=== PATIENT | female | born 1970 | race Two or more races ===

== ENCOUNTER 2019-11-27 05:34 | Inpatient (IN) | payer OTHER ==
[~2019-11-27] VITALS: Ht 167.6 cm; Wt 90.8 kg
[2019-11-27] VITALS (16 sets, daily range): BP systolic 66–155; BP diastolic 54–78
[~2019-11-27 05:34] MED LIST: ABILIFY10 MG ORAL; AMBIEN5 MG ORAL; CARDIZEM30 M1 PO; ZOLOFT100 MG ORAL
[2019-11-27 06:00] LABS: APPEARANCE,URINE CLEAR; BILIRUBIN, URINE NEGATIVE (NEGATIVE); GLUCOSE, URINE (UA) NEGATIVE (NEGATIVE); KETONES,URINE NEGATIVE (NEGATIVE); LEUKOCYTE ESTERASE ,URINE 1+ (NEGATIVE); NITRITE,URINE NEGATIVE (NEGATIVE); PH,URINE 5 (4.5-8.0); PROTEIN,URINE NEGATIVE (NEGATIVE); UROBILINOGEN,URINE NORMAL MG/DL (0.0-1.0)
[2019-11-27 06:09] LABS: COLOR,URINE YELLOW
[2019-11-27] MEDS ORDERED: CIPROFLOXACIN500 M2 ORAL (06:19)
[2019-11-27] MEDS ORDERED: oxyCODONE HCL/Acetaminophen 5/325mg ORAL PRN (06:30)
[2019-11-27] MEDS ORDERED: LR 1000ml 1,000 ML IVLG SCH (06:30)
[2019-11-27] MEDS ORDERED: fentaNYL 100 mcg/2 mL IV PRN (06:30)
[2019-11-27] MEDS ORDERED: Ketorolac 30mg Inj IV PRN ×2 (06:30)
[2019-11-27] MEDS ORDERED: HYDROcodone/Acetamin 5/325 tab ORAL PRN ×2 (06:30→07:30)
[2019-11-27] MEDS ORDERED: Midazolam 2mg/2ml Inj IVP PRN (06:30)
[2019-11-27] MEDS ORDERED: Labetalol 5mg/ml 20ml vial IV PRN (06:30)
[2019-11-27] MEDS ORDERED: Atropine Sulfate 0.4mg/ml inj IVP PRN (06:30)
[2019-11-27] MEDS ORDERED: HYDROcodone/Acetamin 7.5/325 tab ORAL PRN ×2 (06:30→07:30)
[2019-11-27] MEDS ORDERED: Metoclopramide 10mg/2ml Inj IVP PRN ×2 (06:30→07:30)
[2019-11-27] MEDS ORDERED: Meperidine 25mg/0.5ml Inj (FOR RIGORS ONLY) IV PRN (06:30)
[2019-11-27] MEDS ORDERED: DiphenhydrAMINE 50mg/ml Inj IVP PRN (06:30)
[2019-11-27] MEDS ORDERED: Hydromorphone 0.5mg/0.5ml inj IVP PRN (06:30)
[2019-11-27] MEDS ORDERED: LORazepam Inj 2mg/ml 1ml IV PRN (06:30)
[2019-11-27] MEDS ORDERED: Acetaminophen (Non formulary) 100 ML IV ONE (06:30)
--- NOTE | 2019-11-27 06:32 | Anethesia Preoperative Eval ---
Anesthesia Pre-op PMH/ROS General Date of Evaluation: Nov 27, 2019 Time of Evaluation: 07:01 Anesthesiologist: Maddy ASA Score: ASA 3 Mallampati Score Class I : Soft palate, uvula, fauces, pillars visible Class II: Soft palate, uvula, fauces visible Class III: Soft palate, base of uvula visible Class IV: Only hard plate visible Mallampati Classification: Class I Surgeon: Tree Diagnosis: Neck Pain Surgical Procedure: ADR C5-6, ACDF C6-7 Anesthesia History: none Family History: no anesthesia problems Allergies: Uncoded Allergies: nicotine patch (Allergy, Severe, SOB, 11/26/19) Medications: see eMAR Patient NPO?: Yes Past Medical History Cardiovascular: Reports: HTN Gastrointestinal/Genitourinary: Reports: GERD Neurologic/Psychiatric: Reports: CVA, depression/anxiety PSxH Narrative: TH, L Elbow L Knee Anesthesia Pre-op Phys. Exam Physician Exam Last Vital Signs Date Time Temp Pulse Resp B/P (MAP) Pulse Ox O2 Delivery O2 Flow Rate FiO2 11/27/19 06:05 Room Air 11/27/19 06:04 97.0 88 20 119/75 (90) 96 Constitutional: NAD Neurologic: CN 2-12 intact Cardiovascular: RRR Respiratory: CTA Gastrointestinal: S/NT/ND Airway Exam Mallampati Score: Class I MO: full ROM: limited Teeth: missing, intact Anesthesia Pre-op A/P Risk Assessment & Plan Assessment: ASA 3 Plan: GA, SED. GlideScope Status Change Before Surgery: No Pre-Antibiotics Dru Grams Ancef IV Given Within 1 Hr of Incision: Yes Time Given: 07:26 Caio Castañeda MD Nov 27, 2019 06:32
[2019-11-27] MEDS ORDERED: Rocuronium Bromide 50mg/5ml Inj IV ONE (06:40)
[2019-11-27] MEDS ORDERED: Vancomycin 1gm vial IVPB ONE (06:48)
[2019-11-27] MEDS ORDERED: Thrombin 5000 units TOPIC ONE (06:49)
[2019-11-27] MEDS ORDERED: Gelfoam Size TOPIC ONE (06:49)
[2019-11-27] MEDS ORDERED: Bacitracin 50000 Units Vial ONE (06:49)
[2019-11-27] MEDS ORDERED: Sodium Chloride 10ml vial INJ ONE (06:56)
[2019-11-27] MEDS ORDERED: Lidocaine 1% MPF 10mg/ml 5ml ONE (06:56)
[2019-11-27] MEDS ORDERED: fentaNYL 100 mcg/2 mL IV ONE ×2 (06:57→08:05)
[2019-11-27] MEDS ORDERED: propofoL 1,000mg/100ml IV ONE (07:00)
[2019-11-27] MEDS ORDERED: LR 1000ml ONE (07:00)
[2019-11-27] MEDS ORDERED: Sterile Water Irrig 1000ml IRRIG ONE (07:00)
[2019-11-27] MEDS ORDERED: NS Irrig 1000ml ONE (07:00)
[2019-11-27] MEDS ORDERED: ceFAZolin sod 2 GM in NS 55 ML IVPB ONE (07:00)
[2019-11-27] MEDS ORDERED: Lidocaine 1% Plain 30 ml INJ ONE (07:02)
--- NOTE | 2019-11-27 07:19 | Pre-Procedure Note/Attestation ---
Pre-Procedure Note/Attestation Complete Prior to Procedure Planned Procedure: not applicable Procedure Narrative: Cervical 56 artificial disc replacement and Cervical 67 anterior cervical di scectomy and fusion Indications for Procedure Pre-Operative Diagnosis: hnp C56,67 Attestation I attest that I discussed the nature of the procedure; its benefits; risks and complications; and alternatives (and the risks and benefits of such alternatives), prior to the procedure, with the patient (or the patient's legal sales account representative). I attest that, if there was a reasonable possibility of needing a blood transfusion, the patient (or the patient's legal sales account representative) was given the [facility] standardized written summary, pursuant to the Beau Chelly Blood Safety Act ([place] Health and Safety Code # 1645, as amended). I attest that I re-evaluated the patient just prior to the surgery and that there has been no change in the patient's H&P, except as documented below: Avni Leavitt MD Nov 27, 2019 07:19
--- NOTE | 2019-11-27 07:21 | Brief Operative Note ---
Immediate Post Operative Note Operative Note Chief Complaint: neck pain and radiculopathy Pre-op Diagnosis: hnp C56,67 Procedure: Cervical 56 artificial disc replacement and Cervical 67 anterior cervical discectomy and fusion Post-op Diagnosis: same as pre-op Findings: consistent w/pre-op dx studies Surgeon: Tree Wind [employer]urbine Controls Engineer: Angella Anesthesiologist: Maddy Anesthesia: general Specimen: none Complications: none Condition: stable Fluids: IVF Estimated Blood Loss: minimal Drains: none Implant(s) used?: Yes - prodisc c sz 5, nuvasive interlock c sz 6 screwsx3 12mm Avni Leavitt MD Nov 27, 2019 07:21
[2019-11-27] MEDS ORDERED: Morphine Sulfate 4mg/ml Inj (IV USE ONLY) IV PRN (07:30)
[2019-11-27] MEDS ORDERED: Chloraseptic Spray 20mL Bottle ORAL PRN (07:30)
[2019-11-27] MEDS ORDERED: Naloxone 0.4mg/ml Inj IVP PRN (07:30)
[2019-11-27] MEDS ORDERED: Milk of Magnesia 30ml Ud ORAL PRN (07:30)
[2019-11-27] MEDS ORDERED: Morphine Sulfate 2mg/ml Inj(IV/IM USE ONLY) IV PRN (07:30)
[2019-11-27] MEDS ORDERED: Glycopyrrolate 0.2mg/ml 1ml Vial ONE (08:46)
[2019-11-27] MEDS ORDERED: Neostigmine 1mg/ml 10ml Inj ONE (08:46)
--- NOTE | 2019-11-27 09:53 | Immediate Post-Op Evaluation ---
Immediate Post-Op Evalulation Immediate Post-Op Evalulation Procedure: ADR C5-6, ACDF C6-7 Date of Evaluation: Nov 27, 2019 Time of Evaluation: 10:04 IV Fluids: 600 LR Blood Products: 0 Estimated Blood Loss: 50 Urinary Output: 0 Blood Pressure Systolic: 142 Blood Pressure Diastolic: 72 Pulse Rate: 86 Respiratory Rate: 16 O2 Sat by Pulse Oximetry: 99 Temperature (Fahrenheit): 98 Pain Score (1-10): 2 Nausea: No Vomiting: No Complications 0 Patient Status: awake, reacts, patent, extubated, none Dru Grams Ancef IV Given Within 1 Hr of Incision: Yes Time Given: 07:26 Caio Castañeda MD Nov 27, 2019 09:53
[2019-11-27] MEDS ORDERED: Cocaine HCl 4% 4ml vial TOPIC ONE (10:29)
--- NOTE | 2019-11-27 10:37 | NUR ---
CASE MANAGEMENT: INITIAL REVIEW 49YR OLD FEMALE FROM HOME HERE FOR SCHEDULED SURGERY CC:NECK AND RADICULOPATHY PAIN SI:NECK AND RADICULOPATHY PAIN 97.0 88 20 119/75 96% ON RA IS:IN SURGERY NOW C5-6 ARTIFICIAL DISC REPLACEMENT AND C 6-7 DISCECTOMY AND FUSION \: 3E MED SURG UNIT DCP: HOME WHEN STABLE PLAN: NPO ADVANCE DIET TOLERATED CONT ENCOURAGE INCENTIVE SPIROMETER NEURO CHECKS PT EVAL AND THERAPY RECOMMENDATION DVT PROPHYLAXIS ENCOURAGE AMBULATION
--- NOTE | 2019-11-27 11:10 | NUR ---
NURSE NOTES: Patient received from recovery via bed to room 315-1 on O2 3LNC in stable condition. Patient sleeping, awakens to name, touch. Anterior neck, dermabond, CDI. Ice pack in place. RT called for IS. Provided clear liquids, post cervial diet ordered. Neuro checks done, skin warm, hand grasps/pedal pushes 2/5, wiggles, pulses palpable. Bilateral SCDs on. Oriented patient to room, medical equipment and call light, verbalized understanding. Belongings reviewed, all at bedside. Call light in reach, bed in lowest position, will continue to monitor.
[2019-11-27] MEDS: NS w/KCl 20mEq 1000ml 1,000 ML IV SCH ×2 (12:55→22:45)
[2019-11-27] MEDS: HYDROmorphone 1mg/ml Carpuject IVP PRN ×3 (13:10→23:53)
--- NOTE | 2019-11-27 15:22 | 48 Hour Post Anesthesia Eval ---
Post Anesthesia Evaluation Procedure: ADR C5-6, ACDF C6-7 Date of Evaluation: Nov 27, 2019 Time of Evaluation: 15:22 Blood Pressure Systolic: 123 0: 54 Pulse Rate: 70 Respiratory Rate: 14 Temperature (Fahrenheit): 97.5 O2 Sat by Pulse Oximetry: 98 Airway: patent Nausea: No Vomiting: No Pain Intensity: 0 Hydration Status: adequate Cardiopulmonary Status: stable Mental Status/LOC: patient returned to baseline Follow-up Care/Observations: na Post-Anesthesia Complications: none Follow-up care needed: N/A Laly Louie CRNA Nov 27, 2019 15:22
[2019-11-27] MEDS: ceFAZolin sod 1 GM in D5W 55 ML IVPB SCH ×2 (16:28→22:45)
--- NOTE | 2019-11-27 16:30 | NUR ---
NURSE NOTES: Daughter at bedside, reviewed all post op orders, medications, plans for PT evaluation in AM, possible discharge (discussed process for post op patients with discharge: needing to tolerate PO pain medication, tolerate diet, cleared by PT and MDs), also that there is a Rx, films and CD in chart for patient. Ice pack replaced x2 so far. Patient voided on bedpan without difficulty.
--- NOTE | 2019-11-27 16:55 | NUR ---
NURSE NOTES: Home medications reconciled with Dr. Benavides, orders received.
--- NOTE | 2019-11-27 16:59 | General Progress Note ---
Subjective Allergies: Uncoded Allergies: nicotine patch (Allergy, Severe, SOB, 11/26/19) Subjective asked to follow up postop Objective Last 24 Hour Vital Signs Date Time Temp Pulse Resp B/P (MAP) Pulse Ox O2 Delivery O2 Flow Rate FiO2 11/27/19 15:22 70 14 98 11/27/19 11:00 97.5 11/27/19 10:53 97.5 98 18 123/54 99 Nasal Cannula 3 11/27/19 10:40 101 15 134/59 99 Nasal Cannula 3 11/27/19 10:30 95 17 134/63 100 Nasal Cannula 3 11/27/19 10:20 85 16 142/66 100 Simple Mask 6 11/27/19 10:15 97 15 128/71 100 Simple Mask 6 11/27/19 10:05 94 17 153/68 100 Simple Mask 6 11/27/19 10:00 89 16 153/71 98 Simple Mask 6 11/27/19 09:55 87 13 155/78 98 Simple Mask 6 11/27/19 09:53 86 16 99 11/27/19 09:49 98.0 90 14 142/77 100 Simple Mask 6 11/27/19 06:05 Room Air 11/27/19 06:04 97.0 88 20 119/75 (90) 96 Intake and Output 11/26/19 11/27/19 19:00 07:00 # Voids 1 Laboratory Tests 11/27/19 05:45: Urine Color Yellow, Urine Appearance Clear, Urine pH 5, Urine Specific [place] 1.025, Urine Protein Negative, Urine Glucose (UA) Negative, Urine Ketones Neg ative, Urine Blood Negative, Urine Nitrite Negative, Urine Bilirubin Negative, Urine Urobilinogen Normal, Urine Leukocyte Esterase 1+H, Urine RBC 0, Urine WBC 2-4, Urine Squamous Epithelial Cells Few, Urine Bacteria Few, Urine Mucus FewH Height (Feet): 5 Height (Inches): 6.00 Weight (Pounds): 175 Objective WDWN NAD clear breath sounds bilaterally without rhonchi or wheeze [id number] without MRG NABS nontender no HSM no CCE nonfocal Assessment/Plan Assessment/Plan: hnp C56,67 cervical disc disease Cervical 56 artificial disc replacement and Cervical 67 anterior cervical discectomy and fusion PLAN 1. incentive spirometry 2. SCD 3. PT evaluation and therapy 4. Hydration 5. Pain management 6. discharge once stable with outpatient follow up 7. resume home meds Cayden Benavides MD Nov 27, 2019 16:59
--- NOTE | 2019-11-27 17:04 | Diagnostic Imaging Report ---
INDICATION: Pain, intraoperative TECHNIQUE: Intraoperative imaging Fluoroscopy time: 44.7 seconds Total dose: 0.32380 mGym2 Total number of images: 8.9 COMPARISON: None FINDINGS: Surgical markers overlie the C6 vertebral body. Subsequent images document placement of disc prosthesis at C5-6 and anterior fusion at C6-7. IMPRESSION: Intraoperative imaging, as described
--- NOTE | 2019-11-27 17:15 | NUR ---
NURSE NOTES: Home medications sent down to pharmacy at this time. Receipt #[id number].
[2019-11-27] MEDS: Docusate 100mg cap ORAL SCH (18:35)
--- NOTE | 2019-11-27 19:00 | Operative Note - Dictated ---
DATE OF OPERATION: 11/27/2019 SURGEON: Avni Leavitt MD, Orthopaedic Spine Surgeon. PRODUCTION CLOTH CUTTER: MONICA Rich. PREOPERATIVE DIAGNOSES: 1. Intractable neck pain. 2. Radiculopathy. 3. Herniation, C5-C6 and C6-C7. 4. Neural foraminal stenosis, C5-C6 and C6-C7. 5. Stenosis. POSTOPERATIVE DIAGNOSES: 1. Intractable neck pain. 2. Radiculopathy. 3. Herniation, C5-C6 and C6-C7. 4. Neural foraminal stenosis, C5-C6 and C6-C7. 5. Stenosis. PROCEDURE PERFORMED: 1. Anterior cervical discectomy and artificial disc replacement of C5-C6 using a Synthes ProDisc C size 5 height. 2. Anterior cervical discectomy and fusion of C6-C7 using NuVasive Interlock-C size 6 PEEK cage and three screws of 13 mm length and 1 mL of Osteocel allograft bone and local autograft. 3. Use of intraoperative microscope. 4. Motor-evoked potential monitoring. 5. Somatosensory-evoked potential monitoring. 6. Supervision and interpretation of fluoroscopy. COMPLICATIONS: None. ANESTHESIA: General. ESTIMATED BLOOD LOSS: Less than 100 mL. INDICATIONS FOR SURGERY: This patient is a 49-year-old female, who has a history of diagnoses as listed above. As a result of this, the patient sustained intractable neck pain, radiculopathy, herniation at C5-C6 and C6-C7, neural foraminal stenosis at C5-C6 and C6-C7, and stenosis. We tried a course of conservative management, but despite this course, there was still a significant component of persistent, recalcitrant neck pain and arm pain. The MRI demonstrated significant neural foraminal compromise secondary to disc herniations at C5-C6 and C6-C7. We had a long discussion with Chelo regarding the risks and benefits of surgery. Our discussion included but was not limited to nonoperative management, chiropractic management, another epidural steroid injection as well as definitive management in the form of surgery. We recommended an anterior cervical discectomy and artificial disc replacement of cervical C5-C6 and anterior cervical discectomy and fusion of cervical C6-C7 as final definitive management. We reviewed the risks and benefits of surgery with the patient. Our discussion included a comprehensive review of the clinical issues and the nature of the clinical decision. We reviewed the alternatives, including doing nothing. The patient elected to proceed accordingly with an anterior cervical discectomy and artificial disc replacement of cervical C5-C6 and anterior cervical discectomy and fusion of cervical C6-C7. We had a long discussion regarding the risks, alternatives, and benefits of surgery. Our description of the risks included a discussion in person as well as a signed consent, which detailed all pertinent risks from the procedure itself. Briefly, our discussion included but was not limited to infection, bleeding, pseudarthrosis, spinal cord injury, neurovascular injury, dural tear, CSF leak, neuropathy, paralysis, permanent weakness/drop foot/drop arm, paresthesias, blindness, palsy, and weakness. The patient understood there may be a need for a revision surgery or additional procedures. Approach-related complications including dysphonia, dysphagia, blindness, permanent vocal cord and neural injury, hematoma, swallowing and breathing difficulty. Medical complications were reviewed including liver, kidney, shock, cardiopulmonary failure, anesthesia complications including , swelling, damage to the musculature, larynx/voice injury or loss, esophagus/throat, trachea, blood vessels and muscles/muscular sprain and lungs/pneumothorax during this surgical procedure; injury to deeper structures may be temporary or permanent. After this review of risks, the patient understood these and elected to proceed. A written and verbal consent was given. We discussed the pros and cons of all the alternatives. We discussed the uncertainties associated with the decision. Afterwards, I assessed the patient's understanding and explored her preferences. All questions were answered and no guarantees were given. Medical clearance was obtained prior to surgery. INTRAOPERATIVE FINDINGS: C5-C6; there was a distinct disc herniation noted at the left side of the posterior longitudinal ligament. This was carefully resected with a combination of Microsect 1-B and a Kerrison 1 and Kerrison 2 cervical Kerrisons until complete and thorough discectomy was performed at C5-C6. C6-C7; there was a tear noted in the posterior longitudinal ligament along the left side. The disc itself was soft and spongy, not desiccated or dehydrated or crumbled. Through the tear in the posterior longitudinal ligament on the left side, we noted a nuclear fragment of nucleus pulposus, which was torn through the PLL and encroaching on the neural foramina on the left side. The disc there was carefully resected with a Kerrison 1 and a Kerrison 2, after being completely and thoroughly mobilized with a Microsect 1-B curette. As noted, at both levels, she had soft disc with appropriate height and these were not collapsed, they were not indn-xr-ejta, and they were not desiccated, dried, or crumbled. DESCRIPTION OF PROCEDURE: Under the benefit of general endotracheal anesthesia and with the assistance of the entire operative team, the patient was moved from the gurney onto the operative table in the supine position. The head was secured and carefully positioned appropriately. Bilateral arms were secured with Gel Pads and foam and all bony prominences were padded. For the bilateral lower extremities, SCD and SHAHRIAR hose were placed for DVT prophylaxis. A surgical timeout was called, which corroborated our planned procedure of anterior cervical discectomy and artificial disc replacement of cervical C5-C6 and anterior cervical discectomy and fusion of cervical C6-C7. Preoperative antibiotics were administered within 30 minutes of the incision for antibiotic prophylaxis. Using lateral fluoroscopic radiography, the operative levels were delineated. Next, the wound was prepped and draped with chlorhexidine and sterile drapes. An incision was based on lateral fluoroscopy and we centered our incision at the C5-C6 and C6-C7 interspace and next, using a standard Burciaga-Pedraza anterior-based approach, the incision was taken down through the skin and subcutaneous tissues until the vertebral bodies and their corresponding disc spaces were visualized. A needle was placed into the interspace to confirm placement of the operative interspace and we performed the remainder of procedure under microscopic visualization. Next, using a bipolar and Bovie cautery to ensure meticulous hemostasis, the longus colli was mobilized bilaterally and retractors were placed deep to the longus colli bilaterally to address retraction. Next, we turned our attention to the radical anterior discectomy. This was initially performed at C5-C6 first by using a 15 blade scalpel followed by narrow pituitaries and a Microsect 5-B curette was used to denude the endplate of all cartilaginous tissue. Next, using a [employer] AM8 drill bit, the vertebral endplates were denuded of all residual cartilage in a xrda-no-omrp and layer by layer fashion, and ultimately the posterior uncinate joints bilaterally and posterior osteophytic lips and margins were carefully denuded until clear visualization of the posterior longitudinal ligament was possible. An endplate preparation was performed in the exact same fashion using an intervertebral kids club attendant, sequential distraction was obtained throughout the disc space. We saw a tear/rent in the PLL and this was carefully mobilized and dissected using a Microsect 1-B curet until we visualized a discrete disc herniation with compression of the spinal cord as well as neural foramina left (which was right more than left sided. Or I may say ?? which was left more than right sided). This neural foraminal compression was carefully resected using a Kerrison-1 and Kerrison-2 rongeurs until complete decompression of the spinal cord was visualized and complete decompression of the neural foramina and nerve root therein as well as the axilla and lateral margin of the nerve root was visualized and subsequently completely decompressed. The family was notified at one hour intervals throughout the procedure to provide for consistent updates. We next turned our attention towards trialing our implant within the disc space. We initially tried size 5 and this ProDisc Cervical spacer fit well in regards to depth and width. This implant was opened and prepared. Next under direct visualization I confirmed excellent fit in respect to the anterior and posterior vertebral bodies, the uncinate joints and in regards to toggle. Once satisfied with this placement on serial AP and lateral fluoroscopy I turned my attention towards cutting our jad. These were cut in the bones using a reciprocating drill and afterwards all free fragments of bone were irrigated. Next FloSeal was placed into the interspace, then removed in its entirety and the implant was inserted using fluoroscopic guidance. Next the Synthes ProDisc C size 5 ADR was then carefully advanced and secured into the intervertebral space under direct visualization and with supervision of AP and lateral fluoroscopic views. I next turned my attention towards the radical anterior discectomy. This was then performed at Cervical C6-C7. First by using a 15 blade scalpel followed by narrow pituitaries and a micro-sect 5-B curette was used to denude the endplate of all cartilaginous tissue. Next using a [employer] AM8 drill bit, the vertebral endplates were denuded of all cartilaginous tissue in a bjwi-zo-ddwg and tfeqo-kd-hozdf fashion, and ultimately the posterior uncinate joints bilaterally and posterior osteophytic lips and margins were carefully denuded until wide and thorough visualization of the posterior longitudinal ligament was possible. At this level, the endplate preparation was performed in the exact same fashion using an intervertebral kids club attendant, sequential distraction was obtained throughout the disc space. We saw a tear/rent in the PLL and this was carefully mobilized and dissected using a Microsect 1-B curette until we visualized an obvious disc herniation with compression of the spinal cord as well as neural foramina, which was left-sided. This neural foraminal compression was carefully resected using a Kerrison-1 and Kerrison-2 rongeurs until complete decompression of the spinal cord was visualized and complete decompression of the neural foramina and nerve root therein as well as the axilla and lateral margin of the nerve root was visualized and subsequently completely decompressed. We next turned our attention towards trialing our implant within the disc space. We initially tried size 5 and afterwards size 6 trial from the NuVasive Interlock system at C6-C7 level, which appeared to be appropriate under AP and lateral fluoroscopy as well as in terms of its height, depth, width, and lack of toggle. The PEEK (polyetheretherketone) interbody cages were then both packed with allograft bone from Osteocel and local autograft bone matrix. Next, these were then carefully advanced and secured into their intervertebral spaces under direct visualization and with supervision of AP and lateral fluoroscopic views. We next turned our attention towards plating. Plating was performed at C6-C7 level with the NuVasive Interlock-C plating system. A total of three screws, size 13 mm in length, were inserted and confirmed under AP and lateral fluoroscopy and confirmed to be in excellent position. After a finger sweep, we confirmed removal of all sponges. The retractor was removed and we next turned our attention to meticulous hemostasis with FloSeal and bipolar cautery. After the sponge and needle count was again found to be correct with our second count, we next turned our attention to closure. The wound was again copiously irrigated with antibiotic-impregnated saline. Closure consisted of 4-0 clear nylon for the platysma, and 5-0 clear nylon for the superficial skin. Final skin closure and dressings consisted of Dermabond. Prior to final closure, a final radiograph was obtained, which demonstrated the hardware was intact with excellent position throughout. The patient tolerated the procedure well. The patient was carefully extubated after the conclusion of surgery. We discussed the findings of the surgery with the family upon completion of the case. At this point, the patient was transferred to the spine floor for further observation. Avni Leavitt M.D. DR: YAZAN JOB#: [id number] CC:
--- NOTE | 2019-11-27 19:47 | NUR ---
NURSE HAND-OFF: Important Events on Shift:Post op patient received at 1110, Rx/Films/CD in chart Patient Status: stable Diet: post cervical diet Pending Orders: (possible discharge, no orders yet) Pending Results/Labs:none Pending MD notification:none Latest Vital Signs: Temperature 97.5 , Pulse 103 , B/P 107 /63 , Respiratory Rate 18 , O2 SAT 98 , Nasal Cannula, O2 Flow Rate 3 . Vital Sign Comment: none Latest Winn Fall Score: 35 Fall Risk: Medium Risk Safety Measures: Call light , Bed Alarm , Side Rails Side Rails x1, Bed position . Fall Precautions: Report given to Trevor RN.
[2019-11-27] MEDS ORDERED: Zolpidem 5mg tab ORAL PRN (20:30)
[2019-11-27] MEDS: Morphine Sulfate 4mg/ml Inj (IV USE ONLY) IV PRN (21:34)
--- NOTE | 2019-11-27 23:00 | NUR ---
NURSE NOTES: All due meds given. Able to use bedpain and urinated to moderate amount of yellow colored urine. Able to tolerate fluid intake. Complained of pain on the post op site, due prn meds given and noted with relief. Encouraged to do IS everytime she is awake. Able to turned and repositioned, assisted log roll. Made comfortable at all times. Slept @ short intervals. On continued ivatb, without a/r noted. Able to move all extremities independenlty and with good circulation. Post op site is dry and intact. Applied as pack as needed. Will continue to monitor.
[2019-11-28 00:20] VITALS: BP 115/73
[2019-11-28] MEDS: Morphine Sulfate 4mg/ml Inj (IV USE ONLY) IV PRN (02:27)
[2019-11-28 04:27] VITALS: BP 111/65
--- NOTE | 2019-11-28 05:42 | NUR ---
Pt. monitored closely. Pain managed at all times, verbalized relief after giving prn meds. Encouraged to verbalize needs. Assisted with voiding. Vital signs within stable. Able to do IS when awake at all times. able to turned and repositioned. SCD applied and on at all times. Continuous ice application on post op site, intact and no bleeding.Will continue with plan of care.
--- NOTE | 2019-11-28 07:03 | NUR ---
NURSE HAND-OFF: Important Events on Shift:Pain mngt, use of Incentive Spirometer,log rolling Patient Status: stable Diet: Post op cervical Pending Orders: PT eval today Pending Results/Labs: Pending MD notification: Latest Vital Signs: Temperature 97.4 , Pulse 96 , B/P 111 /65 , Respiratory Rate 19 , O2 SAT 96 , Room Air, O2 Flow Rate 3 . Vital Sign Comment: stable Latest Winn Fall Score: 35 Fall Risk: Medium Risk Safety Measures: Call light Within Reach, Bed Alarm Zone 1, Side Rails Side Rails x2, Bed position Low and Locked. Fall Precautions: Yellow Socks Yellow Gown Door Sign Patient Fall Education Report given to Natacha LEHMAN.
--- NOTE | 2019-11-28 07:58 | NUR ---
NURSE NOTES: Received report from FALLON Murray. Pt awake in bed, alert and oriented, Indian speaking in RA. No acute distress noted. C/o pain 5/10. Will administer PRN pain meds as ordered. IV noted intact and patent. Surgical wound site intact. IS at bedside, encourage pt to use IS every hour, pt verbalized understanding. Call light within reach. Will continue to monitor.
[2019-11-28 08:00] VITALS: BP 103/66
[2019-11-28] MEDS: NS w/KCl 20mEq 1000ml 1,000 ML IV SCH (08:28)
[2019-11-28] MEDS: ceFAZolin sod 1 GM in D5W 55 ML IVPB SCH (08:28)
[2019-11-28] MEDS: HYDROcodone/Acetamin 7.5/325 tab ORAL PRN ×2 (08:30→13:00)
[2019-11-28] MEDS: Docusate 100mg cap ORAL SCH (08:30)
[2019-11-28] MEDS ORDERED: Sertraline 100mg tab ORAL SCH (09:00)
[2019-11-28] MEDS ORDERED: dilTIAZem HCl 30mg tab ORAL SCH (09:00)
[2019-11-28] MEDS ORDERED: ARIPiprazole 10mg tab ORAL SCH (09:00)
--- NOTE | 2019-11-28 10:23 | Pulmonology Progress Note ---
Subjective ROS Limited/Unobtainable: No Allergies: Uncoded Allergies: nicotine patch (Allergy, Severe, SOB, 11/26/19) Objective Last 24 Hour Vital Signs Date Time Temp Pulse Resp B/P (MAP) Pulse Ox O2 Delivery O2 Flow Rate FiO2 11/28/19 09:00 Room Air 11/28/19 09:00 97.7 11/28/19 08:29 88 103/66 11/28/19 08:00 97.7 88 18 103/66 (78) 95 11/28/19 04:27 97.4 96 19 111/65 (80) 96 11/28/19 02:57 97.2 11/28/19 00:23 97.2 11/28/19 00:20 97.2 69 18 115/73 (87) 96 11/27/19 22:04 97.2 11/27/19 21:00 Room Air 11/27/19 20:35 97.5 11/27/19 16:00 96.7 103 18 107/63 (78) 98 11/27/19 15:22 70 14 98 11/27/19 13:00 97.8 104 18 109/63 (78) 99 11/27/19 12:30 98.4 106 18 114/65 (81) 99 11/27/19 12:00 97.9 100 18 115/66 (82) 99 11/27/19 11:30 98.5 81 18 115/64 (81) 99 11/27/19 11:00 97.7 95 18 122/66 (84) 99 11/27/19 11:00 97.5 11/27/19 10:53 97.5 98 18 123/54 99 Nasal Cannula 3 11/27/19 10:40 101 15 134/59 99 Nasal Cannula 3 11/27/19 10:30 95 17 134/63 100 Nasal Cannula 3 Intake and Output 11/27/19 11/28/19 19:00 07:00 Intake Total 2680 ml 1055 ml Output Total 350 ml Balance 2330 ml 1055 ml Intake Oral 1280 ml IV Total 1400 ml 1055 ml Output Urine Total 300 ml Estimated Blood Loss 50 ml # Voids 2 Microbiology Date/Time Source Procedure Growth Status 11/25/19 10:30 Nasopharynx SARS-CoV-2 RdRp Gene Assay - Final Complete Current Medications Medications (Trade) Dose Ordered Sig/Eder Route PRN Reason Start Time Stop Time Status Last Admin Dose Admin Acetaminophen (Tylenol) 650 mg Q4H PRN ORAL headache 11/27/19 07:30 12/27/19 07:29 Acetaminophen/ Hydrocodone Bitart ([place] 5/325) 1 tab Q3H PRN ORAL pain score 1-3 11/27/19 07:30 12/04/19 07:29 Acetaminophen/ Hydrocodone Bitart ([place] 7.5/325) 1 tab Q3H PRN ORAL pain score 4-6 11/27/19 07:30 12/04/19 07:29 11/28/19 08:30 Acetaminophen/ Hydrocodone Bitart ([place] 7.5/325) 2 tab Q3H PRN ORAL pain scale 7-10 11/27/19 07:30 12/04/19 07:29 Aripiprazole (Abilify) 10 mg DAILY ORAL 11/28/19 09:00 01/12/20 08:59 11/28/19 08:29 Carisoprodol (Soma) 350 mg TIDPRN PRN ORAL SPASM 11/27/19 07:30 12/27/19 07:29 Cetylpyridinium Chloride (Cepacol) 1 lozg Q2H PRN EMORY sore throat 11/27/19 07:30 02/25/20 07:29 11/28/19 02:48 Diltiazem HCl (Cardizem Tab) 30 mg TWICE A DAY ORAL 11/28/19 09:00 12/28/19 08:59 Docusate Sodium (Colace) 100 mg TWICE A DAY ORAL 11/27/19 18:00 12/27/19 17:59 11/28/19 08:30 Hydromorphone HCl (Dilaudid) 1 mg Q2H PRN IVP Breakthrough Pain 11/27/19 07:30 12/04/19 07:29 11/27/19 23:53 Magnesium Hydroxide (Mom) 30 ml QIDPRN PRN ORAL Constipation 11/27/19 07:30 12/27/19 07:29 Metoclopramide HCl (Reglan) 10 mg Q6H PRN IVP Nausea & Vomiting 11/27/19 07:30 12/27/19 07:29 Morphine Sulfate (Morphine Sulfate) 2 mg Q4H PRN IV Mild Pain (Pain Scale 1-3) 11/27/19 07:30 12/04/19 07:29 Morphine Sulfate (Morphine Sulfate) 4 mg Q3H PRN IV Severe Pain (Pain Scale 7-10) 11/27/19 07:30 12/04/19 07:29 11/28/19 02:27 Morphine Sulfate (Morphine Sulfate) 4 mg Q4H PRN IV Moderate Pain (Pain Scale 4-6) 11/27/19 07:30 12/04/19 07:29 11/27/19 16:29 Naloxone HCl (Narcan) 0.1 mg PRN PRN IVP RR<12/min, pt unarousable 11/27/19 07:30 02/25/20 07:29 Ondansetron HCl (Zofran) 4 mg Q6H PRN IVP Nausea & Vomiting 11/27/19 07:30 12/27/19 07:29 Phenol/Menthol (Chloraseptic) 1 spray Q3H PRN ORAL To Patient Comfort 11/27/19 07:30 02/25/20 07:29 11/27/19 13:06 Potassium Chloride/Sodium Chloride 1,000 ml @ 100 mls/hr Q10H IV 11/27/19 13:00 12/27/19 12:59 11/28/19 08:28 Prochlorperazine (Compazine) 10 mg Q6H PRN IVP Nausea & Vomiting 11/27/19 07:30 12/27/19 07:29 Sertraline HCl (Zoloft) 100 mg DAILY ORAL 11/28/19 09:00 12/28/19 08:59 11/28/19 08:29 Zolpidem Tartrate (Ambien) 5 mg HSPRN PRN ORAL Insomnia 11/27/19 20:30 12/04/19 20:29 Assessment/Plan Assessment/Plan Progress Note Subjective Allergies: Uncoded Allergies: nicotine patch (Allergy, Severe, SOB, 11/26/19) Subjective asked to follow up postop Objective Vital Signs noted Height (Feet): 5 Height (Inches): 6.00 Weight (Pounds): 175 Objective WDWN NAD clear breath sounds bilaterally without rhonchi or wheeze [id number] without MRG NABS nontender no HSM no CCE nonfocal Assessment/Plan Assessment/Plan: hnp C56,67 cervical disc disease Cervical 56 artificial disc replacement and Cervical 67 anterior cervical discectomy and fusion PLAN 1. incentive spirometry 2. SCD 3. PT evaluation and therapy 4. Hydration 5. Pain management 6. discharge once stable with outpatient follow up 7. continue home meds Riaz Quiros MD Nov 28, 2019 10:23
--- NOTE | 2019-11-28 10:57 | NUR ---
PT Note PT salma completed, treatment initiated. Patient has generalized weakness and muscle weakness on the LLE due to h/o CVA with LLE residual weakness. Patient needs physical therapy to increase muscle strength and instruct/train on proper body mechanics to improve her safety in mobility and gait. Addendum: 11/28/19 at 1059 by JACKI BARLOW PT Amended: Links added.
[2019-11-28 12:00] VITALS: BP 99/65
[2019-11-28] MEDS ORDERED: Tubing IV Secondary IV ONE (14:09)
--- NOTE | 2019-11-28 14:10 | NUR ---
NURSE NOTES: Pt in stable condition. vital signs stable. Pt has c/o heartburn but it was tolerating. Provided discharge instructions, Rx , FWW and education of using IS. Pt verbalized understanding. All belongings were accounted for. IV and ID band removed. Pt was escorted by nurse via wheel chair and picked up by daughter
--- NOTE | 2019-11-30 13:46 | Discharge Summary ---
Discharge Summary Hospital Course Date of Admission Nov 27, 2019 at 05:34 Date of Discharge Nov 28, 2019 at 14:10 Admitting Diagnosis Neck pain, cervical radiculopathy Reason for Hospitalization: elective surgery HPI Chelo Parks is a 49 year old female who was admitted on Nov 27, 2019 at 05:34 for herniated nucleus pulposus, neck pain, cervical radiculopathy Patient initially tried a course of conservative management, but despite this course there was a significant component of persistent, recalcitrant neck pain and arm pain. MRI demonstrated significant neural foraminal compromise secondary to disc herniation at C5-6 and C6-C7. Subsequently after long discussion with the patient, including the risk and benefits of the surgery, patient consented for surgery. Patient was admitted for surgical intervention. Procedures s/p 11/27/[address] Leavitt 1. Anterior cervical discectomy and artificial disc replacement of C5-C6 using a Synthes ProDisc C size 5 height. 2. Anterior cervical discectomy and fusion of C6-C7 using NuVasive Interlock-C size 6 PEEK cage and three screws of 13 mm length and 1 mL of Osteocel allograft bone and local autograft. 3. Use of intraoperative microscope. 4. Motor-evoked potential monitoring. 5. Somatosensory-evoked potential monitoring. 6. Supervision and interpretation of fluoroscopy. Hospital Course status post surgery course of recovery uneventful initially IV fluids s/p perioperative antibiotic and steroid neurovascular status closely monitored, remained stable incision with dressing, remained clean dry and intact pain management was addressed pain was controlled patient remained hemodynamically stable ambulated with PT fall precautions maintained; safe for ambulation patient slowly started on diet patient was able to tolerate diet , IV fluids discontinued antiemetics were on board as needed blood pressure was managed with Cardizem and remained stable voided freely bowel regimen instituted patient was stable for discharge discharge instructions provided follow up with surgeon in the office as advised FINAL DIAGNOSES 1.. Intractable neck pain. 2. Radiculopathy. 3. Herniation, C5-C6 and C6-C7. 4. Neural foraminal stenosis, C5-C6 and C6-C7. 5. Stenosis. 6. s/p Cervical C5-6 artificial disc replacement and Cervical C6-7 anterior cervical discectomy and fusion Discharge Medications Continued Medications: Aripiprazole* (Abilify*) 10 Mg Tablet 5 MG ORAL DAILY for PRESCRIBED, TAB Diltiazem Hcl* (Cardizem*) 30 Mg Tablet 30 MG PO BID for PRESCRIBED, TAB Sertraline Hcl* (Zoloft*) 100 Mg Tablet 100 MG ORAL DAILY for PRESCRIBED, TAB Zolpidem Tartrate* (Ambien*) 5 Mg Tablet 5 MG ORAL BEDTIME PRN for Insomnia, TAB Discontinued Medications: Ciprofloxacin Hcl* (Ciprofloxacin Hcl*) 500 Mg Tablet 250 MG ORAL BID for INFECTION, TAB 0 Refills Discharge Discharge Vital Signs Last Vital Signs Date Time Temp Pulse Resp B/P (MAP) Pulse Ox O2 Delivery O2 Flow Rate FiO2 11/28/19 13:30 97.7 11/28/19 12:00 88 18 99/65 (76) 94 11/28/19 09:00 Room Air 11/27/19 10:53 3 Discharge Disposition Patient was discharged to Home (01) Discharge Instructions Discharge Instructions Special Instructions I have been assigned to complete a D/C Summary on this account. I was not involved in the patient management Colleen Reis NP Nov 30, 2019 13:46
== END 2019-11-28 14:10 | disposition home or self-care (01) | DRG 473 ==
LOC: SDSOVERFLO 05:34 → EDBD 10:00 → 3E 11:24
PROC: 0RR30JZ Replacement of Cervical Vertebral Disc with Synthetic Substitute, Open Approach (ICD-10-PCS; principal; 2019-11-27 07:00)
PROC: 0RG10A0 Fusion of Cervical Vertebral Joint with Interbody Fusion Device, Anterior Approach, Anterior Column, Open Approach (ICD-10-PCS; principal; 2019-11-27 07:00)
PROC: 0RB30ZZ Excision of Cervical Vertebral Disc, Open Approach (ICD-10-PCS; principal; 2019-11-27 07:00)
DX: M50.222 Other cervical disc displacement at C5-C6 level (principal); M48.02 Spinal stenosis, cervical region; Z23 Encounter for immunization; Z79.82 Long term (current) use of aspirin; R00.0 Tachycardia, unspecified; F32.9 Major depressive disorder, single episode, unspecified; F17.200 Nicotine dependence, unspecified, uncomplicated
CPT/HCPCS: 36415; 72040; 76000; 81003; 86850; 86900; 86901; 87081; 94003; 94150; J2405; J2710; U0002